=== PATIENT | male | born 1950 | race Caucasian/White ===

== ENCOUNTER 2021-08-09 13:34 | Emergency (ER) | payer MEDICARE, OTHER ==
[2021-08-09 14:58] LABS: HEMOGLOBIN 14.3 gm/dl (14.0-17.5); RED BLOOD COUNT 4.46 M/UL (4.20-5.50); WHITE BLOOD COUNT 11.2 K/UL (4.5-11.0)
[2021-08-09 15:24] LABS: BUN/CREATININE RATIO 10 (0-10)
[2021-08-09] MEDS ORDERED: PREDNISONE 20 M20 MG PO (18:12)
== END 2021-08-09 18:55 | disposition home or self-care (01) ==
LOC: ER1 13:34
PROVIDERS: Emergency Medicine
DX: J44.1 Chronic obstructive pulmonary disease with (acute) exacerbation (principal); E78.5 Hyperlipidemia, unspecified; I10 Essential (primary) hypertension; Z20.822 Contact with and (suspected) exposure to COVID-19
CPT/HCPCS: 0240U; 71045; 80053; 81001; 82550; 82553; 83880; 84484; 85025; 85379; 87086; 93005; 94664; 96374; 99285; J1100; Q9967